=== PATIENT | female | born 1965 | race Caucasian/White ===

== ENCOUNTER 2017-11-13 06:26 | Day surgery (SDC) | payer BC ==
[~2017-11-13 06:26] MED LIST: BUPR100CR PO; CELE50CA PO; XANA2TAB2 PO
[2017-11-13] MEDS ORDERED: LACTATED RINGER'S 1000 ML IV PRN (07:15)
[2017-11-13] MEDS ORDERED: SODIUM CHLORID 0.9% 500 ML IV PRN (07:15)
[2017-11-13] MEDS ORDERED: POVIDONE IODINE 5% (ANTISEPSIS KIT) 4 APPLICATIONS EACH NARE PRN (07:15)
[2017-11-13] MEDS ORDERED: CHLORHEXIDINE GLUCONATE 2 % 1 PACK (2 CLOTHS) TOPICAL PRN (07:15)
[2017-11-13] MEDS ORDERED: METOPROLOL TARTRATE 25 MG TAB PO PRN (07:15)
[2017-11-13] MEDS ORDERED: FLEC1TAB8 PO (07:38)
[2017-11-13] MEDS ORDERED: CARD180C5 PO (07:38)
[2017-11-13] MEDS ORDERED: TRAZ50TA12 PO (07:38)
[2017-11-13] MEDS ORDERED: XARE20TA PO (07:38)
[2017-11-13] MEDS ORDERED: PROPOFOL 200 MG/20 ML AMP IV ONE (12:00)
--- NOTE | 2017-11-13 15:13 | EKG ---
Date Performed: 11/13/2017 Time Performed: 07:06:50 PTAGE: 52 years EKG: Atrial fibrillation. Abnormal ECG NO PREVIOUS TRACING DOCTOR: Eleonora Vicente Interpretating Date/Time 11/13/2017 15:12:06
--- NOTE | 2017-11-13 19:11 | EKG ---
Date Performed: 11/13/2017 Time Performed: 09:17:40 PTAGE: 52 years EKG: Sinus rhythm with borderline 1st degree A-V block. Prolonged QT interval When compared to previous tracing, the a trial fibrillation has Resolved and the patient is now back in sinus rhythm. There is evidence of pos sible left atrial enlargement. Borderline ECG PREVIOUS TRACING : 11/13/2017 07.06.50 DOCTOR: Eleonora Vicente Interpretating Date/Time 11/13/2017 19:10:56
== END 2017-11-13 10:06 | disposition home or self-care (01) ==
LOC: HDOC 06:26 → HDIC 06:27 → HDOC 10:06
PROVIDERS: ATTEND Internal Medicine Interventional Cardiology
DX: I48.1 Persistent atrial fibrillation (principal)
CPT/HCPCS: 92960; 93005